=== PATIENT | female | born 1960 | race Caucasian/White ===

== ENCOUNTER 2019-01-25 08:03 | Day surgery (SDC) | payer BC ==
[2019-01-25] MEDS ORDERED: PROPOFOL 10 MG/ML VIAL IV ONE (08:04)
[2019-01-25] MEDS ORDERED: LIDOCAINE 2% MDV (20MG/ML) 20ML VIAL IV ONE (08:04)
--- NOTE | 2019-01-26 08:10 | Operative Note ---
OPERATION: Screening COLONOSCOPY. PREOPERATIVE DIAGNOSIS: Colon cancer screening, average risk. POSTOPERATIVE DIAGNOSIS: Sigmoid diverticulosis, otherwise normal exam. PREPARATION QUALITY: Good to excellent. SPECIMENS: None. COMPLICATIONS: None apparent. PROCEDURE: After informed consent was obtained from the patient, she was placed in the left lateral decubitus position in the endoscopy suite, sedated and monitored by the department of anesthesia. Digital rectal exam was unremarkable. A well-lubricated RUO480 colonoscope was inserted into the rectum and advanced to the cecum. Preparation quality was good to excellent. The cecum, cecal bulb, ileocecal valve, and appendiceal orifice were unremarkable. The cecum was inspected several times including a second intubation of the cecum. No polyps were seen. The ascending colon, transverse colon, and descending colon were unremarkable. The sigmoid colon demonstrated [id number] diverticular changes. No other abnormalities were noted in the sigmoid colon. Forward and J- turn views of the rectum and anorectum were unrevealing. The endoscope was straightened, the rectal ampulla deflated, and the endoscope was removed. RECOMMENDATIONS: The patient should follow a high-fiber diet. Consider the use of fiber supplement such as Citrucel or Benefiber. She should undergo repeat colonoscopy in 10 years or sooner should symptoms indicate or warrant. As always, thank you for allowing me to participate in the healthcare of your patients. CC: RAMÓN Cobian
== END 2019-01-25 10:10 | disposition home or self-care (01) ==
LOC: HOP 08:03
PROVIDERS: ATTEND Internal Medicine Gastroenterology
DX: Z12.11 Encounter for screening for malignant neoplasm of colon (principal); K57.30 Diverticulosis of large intestine without perforation or abscess without bleeding
CPT/HCPCS: 00812; G0121